=== PATIENT | male | born 1985 | race American Indian/Alaskan Native ===

== ENCOUNTER 2018-06-03 20:27 | Emergency (ER) | payer SELFPAY ==
[2018-06-03 20:53] VITALS: RESP 18; TEMP 98.4; O2SAT 100
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
[2018-06-03 23:31] VITALS: BP 132/76; PULSE 88
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
== END 2018-06-03 23:35 | disposition home or self-care (01) ==
LOC: ED 20:27
DX: M25.561 Pain in right knee (principal)
CPT/HCPCS: 73562; 96372; 99283; J1885